=== PATIENT | female | born 1960 | race Caucasian/White ===

== ENCOUNTER 2025-03-04 11:38 | Outpatient (CLI) | payer BC, SELFPAY ==
--- OUTSIDE RECORDS SUMMARY | 2025-02-04 11:00 | XMS_ITS | Encounter Summary ---
Author Organization Healthcare Address [address] [place] [address] Care Team Providers Care Teller Supervisor Name Role Phone Chantelle Ruiz MD Primary Care Provider [phone] Encounter Details Date Type Department Care Team (Late st Contact Info) Description 02/04/2025 11:00 AM EDT [facility] Visit [facility] [address] [place] [address] Carito Mayo MD [address] [place] [address] Chronic midline low back pain without sciatica (Primary Dx); Facet arthritis of lumbar region; Right hip pain Social History Tobacco Use Types Packs/Day Years Used Date Smoking Tobacco: Never Smokeless Tobacco: Never Alcohol Use Standard Drinks/Week Comments Never 0 (1 standard drink = 0.6 oz pur e alcohol) PHQ-2 Answer Date Recorded Patient Health Questionnaire-2 Score 0 12/06/2024 PHQ-9 Answer Date Recorded Patient Health Questionnaire-9 Score 6 12/06/2024 Comments Unknown Sex and Gender Information Value Date Recorded Sex Assigned at Not on file Legal Sex Female 8:43 PM EDT Gender Identity Not on file Sexual Orientation Not on file documented as of this encounter Last Filed Vital Signs Vital Sign Reading Time Taken Comments Blood Pressure 126/84 02/04/2025 10:39 AM EDT Pulse - - Temperature - - Respiratory Rate - - Oxygen Saturation - - Inhaled Oxygen Concentration - - Weight 131 kg (289 lb 3.9 oz) 02/04/2025 10:39 A M EDT Height 160 cm (5' 3 ) 02/04/2025 10:39 AM EDT Body Mass Index 51.24 02/04/2025 10:39 AM EDT documented in this encounter Miscellaneous Notes * Progress Notes - Cherrie Salinas, FLACA - 02/04/2025 11:00 AM EDT We had the pleasure of seeing your patient in our clinic today for continued Neurosurgical evaluation. Chief Complaint Follow-up History Of Present Illness Olivia Dupree is a 64 y.o. female presents to the neurosurgical clinic today for follow-up. The patient was previously seen by our colleague, Dr. Field for ongoing low back pain. As you may recall, the patient had a L5-S1 lumbar microdiskectomy for cauda equina syndrome in 1988 In [place], [place]. The patient had had residual saddle anesthesia however her pain had resolved. Over the last 2-3 years, patient had had low back pain that had worsened over the last year. She had an epidural steroid injections, physician primary care sports medicine as well as physical therapy for her hips without appreciable benefit. After repeat imaging, this was reviewed and determine to follow up with Dr. Mayo to discuss any surgical options if appropriate. At today's visit, the patient continues to complain of low back pain and continues to be pending a right total hip replacement. She states that recentlyshe has noticed pain that is in the right hip, right side of her knee, as well as in the right lateral calf. She also notes swelling in his areas well, she has had an ultrasound which has ruled out aDVT in the area. She does notice numbness and tingling occasionally as well. She is lying on a walker for mobility over the last month. The patient continues to receive hip injections but is noted inlast visit, has not had anymore epidural steroid injections despite improvement after them. She states the gabapentin 300 mg that she was previously taking has not improved her symptoms. She denies any bowel or bladder incontinence but continues to have the residual saddle anesthesia. Past Medical History She has a past medical history of Anemia, Arthritis, Hypertension, Low back pain, Obesity, and Sleep apnea. Surgical History She has a past surgical history that includes Cholecystectomy; Hysterectomy; Tonsillectomy (1968); and Adenoidectomy (1968). Family History Family History[1] Social History She reports that she has never smoked. She has never used smokeless tobacco. She reports that she does not drink alcohol and does not use drugs. Medications Current Medications[2] Allergies Methylprednisolone Review of Systems 14 point review of systems was performed and was negative except as noted per HPI. Physical Exam Neurologic exam: Alert and oriented x3. Appropriate memory, attention span, and insight. Normal coordination noted. Strength 5/5 bilaterally in upper and lower extremities. No tremor noted. Biceps, triceps, brachioradialis, patellar, achilles reflexes symmetric and 1+ bilaterally. Sensation, including light touch, intact bilaterally. Negative Mai's bilaterally. No clonus noted bilaterally. Negative straight leg raise test bilaterally. Positive Rony's test on the right, negative Rony's test on the left. Last Recorded Vitals Visit Vitals BP 126/84 Ht 1.6 m (5' 3 ) Wt 131 kg (289 lb 3.9 oz) BMI 51.24 kg/m?? Smoking Status Never BSA 2.41 m?? Labs No lab exists for component: ALB Results from last 7 days Lab Units 01/30/25 0815 WBC 10*3/mm3 8.01 HEMOGLOBIN g/dL 10.1* HEMATOCRIT % 31* PLATELETS 10*3/mm3 279 Imaging I personally reviewed and independently interpreted MRI of the lumbar spine from December 18, [address] Mayo. Imaging does show fhrj-we-ebyqqbkx spinal stenosis at L3-4, there are postoperative changes noted at L5-S1. No appreciable narrowing is noted at other levels. Assessment and Plan Olivia Dupree is a 64 y.o. female presents to the neurosurgical clinic today for follow-up. Imaging was reviewed in his noted above. At this time, while the patient does have djgs-ek-onyjgkxk central stenosis at L3-4, her symptoms are more consistent with a right hip pathology. We would recommend no neurosurgical intervention at this time as she does not have any other symptoms of cauda equina and her symptoms are more consistent with her right hip. She will continue with her right hip replacement and contact us if she has any new or worsening symptoms after today's visit. The patient was given the opportunity to ask questions all of which were answered to their satisfaction and is agreeable to the plan of care. I personally examined and reviewed patient's history along with Dr. Mayo, the plan of care was discussed and guided by Dr. Mayo. This note was dictated using voice to text software and may contain minor errors Sierra [facility]inas APRN Division of Neurosurgery [facility] [1] Family History Problem Relation Name Age of Onset Migraines Mother Ginny Dupree 26 [2] Current Outpatient Medications Medication Sig Dispense Refill ascorbic acid (Vitamin C) 500 MG tablet Take 1 tablet by mouth 1 time each day. ferrous sulfate 325 (65 Fe) MG tablet Take 1 tablet by mouth. Gabapentin powder Lexapro 20 MG tablet Take 1 tablet by mouth 1 (one) time each day. lisinopril-hydroCHLOROthiazide 20-25 MG tablet Take 1 tablet by mouth 1 (one) time each day. montelukast (Singulair) 10 MG tablet Take 1 tablet by mouth 1 (one) time each day. nystatin (Mycostatin) 180048 UNIT/GM powder APPLY POWDER TOPICALLY TO AFFECTED AREA TWICE DAILY triamcinolone (Kenalog) 0.1 % cream APPLY A THIN LAYER OF CREAM EXTERNALLY TO AFFECTED AREA TWICE DAILY NEEDED No current facility-administered medications for this visit. Cosigned by Carito Mayo MD at 02/10/2025 10:33 AM EDT Associated attestation - Carito Mayo MD - 02/10/2025 10:33 AM EDT I evaluated this patient along with the ROXANNE and agree with her note and plan of management. Please charge to the ROXANNE. documented in this encounter Plan of Treatment Not on file documented as of this encounter Visit Diagnoses Diagnosis Chronic midline low back pain without sciatica- Primary Facet arthritis of lumbar region Right hip pain Pain in joint, pelvic region and thigh documented in this encounter Additional Health Concerns Assessment Noted Time PHQ-9 Depression Total Score: 6 12/07/19 25 8:41 AM EDT A fall risk assessment has been complete d for the patient 02/04/2025 10:51 AM EDT A Body Mass Index follow-up plan has been documented for the patient 02/10/2025 10:33 AM EDT documented as of this encounter Care Teams Teller Supervisor Relationship Specialty Start Date End Date Chantelle Ruiz MD [address] [facility] [address] [place] [address] PCP - General 01/22/21 documented as of this encounter
--- OUTSIDE RECORDS SUMMARY | 2025-03-04 11:42 | XMS_ITS | Encounter Summary ---
Author Organization Healthcare Address [address] [place] [address] Care Team Providers Care Transportation Design Engineer Name Role Phone Chantelle Ruiz MD Primary Care Provider [phone] Encounter Details Date Type Department Care Team (Latest Contact Info) Description 02/04/2025 Travel Social History Tobacco Use Types Packs/Day Years [...] on file documented as of this encounter Plan of Treatment Not on file documented as of this encounter Visit Diagnoses Not on filedocumented in this encounter Additional Health Concerns Assessment Noted Time PHQ-9 Depression Total Score: 6 12/07/19 25 8:41 AM EDT A fall risk assessment has been complete d for the patient 02/04/2025 10:51 AM EDT A Body Mass Index follow-up plan has been documented for the patient 02/10/2025 10:33 AM EDT documented as of this encounter Care Teams Transportation Design Engineer Relationship Specialty Start Date End Date Chantelle Ruiz MD [address] [facility] [address] [place], [place] [id number] PCP - General 01/22/21 documented as of this encounter
--- OUTSIDE RECORDS SUMMARY | 2025-03-04 11:42 | XMS_ITS | Encounter Summary ---
Author Organization Healthcare Address [address] [place] [address] Care Team Providers Care Laborer Chicken Farm Name Role Phone Chantelle Ruiz MD Primary Care Provider [phone] Encounter Details Date Type Department Care Team (Late st Contact Info) Description 12/27/2024 Telephone [place] [facility] [address] [place] [address] Fahad Field MD [address] [place] [address] Social History Tobacco Use Types Packs/Day Years [...] on file documented as of this encounter Miscellaneous Notes * Telephone Encounter - Geni Villegas PA - 12/27/2024 4:40 PM EDT MRI lumbar spine dated 12/18/2024 was reviewed today by myself and Dr. Field. Imaging demonstrates multilevel degenerative disc disease throughout with postoperative changes at L5-S1. There is advanced degenerative disc disease with facet arthropathy and broad-based disc bulging with a central discherniation at L3-4 resulting in spinal canal stenosis. There may be a component of epidural lipomatosis. The patient's symptoms have been refractory to chiropractic therapy and injection therapy. Thepatient is scheduled for a CT scan of the heart on 01/15/2025. The patient requires cardiac clearance. The patient is interested in surgical options. Once cardiac clearance has been obtained, the patient was instructed to notify us. Dr. Field would like the patient to follow up with Dr. Mayo to discuss surgical options if appropriate. The patient verbalized understanding. * Telephone Encounter - Fernando Bishop - 12/27/2024 1:29 PM EDT Patient Phone Message Reason for Call: Patient calling has completed MRI needing call back for next steps in care Best contact number and optimal time of day to reach caller: [phone] Note: Please do not reply to this message. Follow-up communication and further actions as a result of this message need to be communicated with the patient directly, if the patient is not active onMyChart. If the patient is active on MyChart, they will receive notification of the communication/outcome via [employer]. documented in this encounter Plan of Treatment Not on file documented as of this encounter Visit Diagnoses Not on filedocumented in this encounter Additional Health Concerns Assessment Noted Time PHQ-9 Depression Total Score: 6 12/07/19 25 8:41 AM EDT A fall risk assessment has been complete d for the patient 12/06/2024 8:39 AM EDT A Body Mass Index follow-up plan has been documented for the patient 12/06/2024 9:27 AM EDT documented as of this encounter Care Teams Laborer Chicken Farm Relationship Specialty Start Date End Date Chantelle Ruiz MD [address] [facility] [address] [place] [address] PCP - General 01/22/21 documented as of this encounter
--- OUTSIDE RECORDS SUMMARY | 2025-03-04 11:42 | XMS_ITS | Encounter Summary ---
Author Organization Healthcare Address [address] [place] [address] Care Team Providers Care Farm Machinery Engine Mechanic Name Role Phone Chantelle Ruiz MD Primary Care Provider [phone] Encounter Details Date Type Department Care Team ([facility] st Contact Info) Description 10/05/2023 Orders Only External Location [address] [place] [address] Provider, External Social History Tobacco Use Types Packs/Day Years Used Date Smoking Tobacco: Never Assessed Comments Unknown Sex and Gender Information Value Date Recorded Sex Assigned at Not on file Legal Sex Female 8:43 PM EDT Gender Identity Not on file Sexual Orientation Not on file documented as of this encounter Plan of Treatment Not on file documented as of this encounter Procedures Procedure Name Priority Date/Time Associated Diagnosis Comments MR OUTSIDE IMAGES 10/05/2023 9:14 AM EST documented in this encounter Results * MR transfer of outside films (10/05/2023 9:14 AM EST) Anatomical Region Laterality Modality Magnetic Resonan ce 10/05/2023 9:14 AM EST us External Provider IMG MRI PROCEDURES Final Resul t documented in this encounter Visit Diagnoses Not on filedocumented in this encounter Care Teams Farm Machinery Engine Mechanic Relationship Specialty Start Date End Date Chantelle Ruiz MD [address] [facility] [address] [place] [address] PCP - General 01/22/21 documented as of this encounter
--- OUTSIDE RECORDS SUMMARY | 2025-03-04 11:42 | XMS_ITS | Encounter Summary ---
Author Organization Healthcare Address [address] [place] [address] Care Team Providers Care Caustics Loader Name Role Phone Chantelle Ruiz MD Primary Care Provider [phone] Encounter Details Date Type Department Care Team (Latest Contact Info) Description 01/29/2025 Travel Social History Tobacco Use Types Packs/Day [...] documented as of this encounter Care Teams Caustics Loader Relationship Specialty Start Date End Date Chantelle Ruiz MD [address] [place], [place] [id number] PCP - General 01/22/21 documented as of this encounter
--- OUTSIDE RECORDS SUMMARY | 2025-03-04 11:42 | XMS_ITS | Encounter Summary ---
Author Organization Healthcare Address [address] [place] [address] Care Team Providers Care Delivery Manager Name Role Phone Chantelle Ruiz MD Primary Care Provider [phone] Reason for Visit * Reason Onset Date Comments HCN - Patient Message 01/28/2025 Return joshua l Encounter Details Date Type Department Care Team (Late st Contact Info) Description 01/28/2025 Telephone [place] [facility] [address], [address] [place] [address] Fahad Field MD [address] [place] [address] HCN - Patient Message (Return call) Social History Tobacco Use Types Packs/Day Years [...] encounter Miscellaneous Notes * Telephone Encounter - Mayte Chamberlain - 01/28/2025 1:23 PM EDT Confirmed cards clearance is uploaded in her media tab. Spoke with patient and scheduled f/up with Dr. Mayo to discuss surgical intervention on 02/04 at 2:00PM. * Telephone Encounter - Cleveland Shankar - 01/28/2025 1:13 PM EDT Patient Phone Message Reason for Call: Patient states she now has her cardiac clearance and would like a return call to set up her surgery. Best contact number and optimal time of day to reach caller: Please call [phone] Note: Please do not reply to this message. Follow-up communication and further actions as a result of this message need to be communicated with the patient directly, if the patient is not active onMyChart. If the patient is active on MyChart, they will receive notification of the communication/outcome via [employer]. documented in this encounter Plan of Treatment [...] documented as of this encounter Care Teams Delivery Manager Relationship Specialty Start Date End Date Chantelle Ruiz MD [address] [facility] [address] [place] [address] PCP - General 01/22/21 documented as of this encounter
--- OUTSIDE RECORDS SUMMARY | 2025-03-04 11:42 | XMS_ITS | Encounter Summary ---
Author Organization Healthcare Address [address] [place] [address] Care Team Providers Care Slunk Skinner Name Role Phone Chantelle Ruiz MD Primary Care Provider [phone] Encounter Details Date Type Department Care Team (Late st Contact Info) Description 08/22/2022 Orders Only External Location [address] [place] [address] Provider, External Social History Tobacco Use Types [...] Date/Time Associated Diagnosis Comments MR OUTSIDE IMAGES 08/22/2022 2:06 PM EST documented in this encounter Results * MR transfer of outside films (08/22/2022 2:06 PM EST) Anatomical Region Laterality Modality Magnetic Resonan ce 08/22/2022 2:06 PM EST us External Provider IMG MRI PROCEDURES Final Resul t documented in this encounter Visit Diagnoses Not on filedocumented in this encounter Care Teams Slunk Skinner Relationship Specialty Start Date End Date Chantelle Ruiz MD [address] [facility] [address] [place] [address] PCP - General 01/22/21 documented as of this encounter
--- OUTSIDE RECORDS SUMMARY | 2025-03-04 11:42 | XMS_ITS | Encounter Summary ---
Author Organization Healthcare Address [address] [place] [address] Care Team Providers Care Gear Machine Operator General Name Role Phone Chantelle Ruiz MD Primary Care Provider [phone] Reason for Visit * Reason Onset Date Comments HCN - Patient Message 12/23/2024 Results Encounter Details Date Type Department Care Team (Late st Contact Info) Description 12/23/2024 Telephone [place] [facility] [address] [place] [address] Fahad Field MD [address] [place] [address] HCN - Patient Message (Results ) Social History Tobacco Use Types Packs/Day Years [...] encounter Miscellaneous Notes * Telephone Encounter - Lexie Borges - 12/23/2024 10:11 AM EDT Patient Phone Message Reason for Call: MRI results Done at [facility] 12/18/24 Best contact number and optimal time of day to reach caller: Pt / [phone] Note: Please do not reply to this message. Follow-up communication and further actions as a result of this message need to be communicated with the patient directly, if the patient is not active onMyChart. If the patient is active on MyChart, they will receive notification of the communication/outcome via [employer]. documented in this encounter Plan of Treatment Not on file documented as of this encounter Visit Diagnoses Not on filedocumented in this encounter Additional Health Concerns Assessment Noted Time PHQ-9 Depression Total Score: 6 12/07/19 8:41 AM EDT A fall risk assessment has been complete d for the patient 12/06/2024 8:39 AM EDT A Body Mass Index follow-up plan has been documented for the patient 12/06/2024 9:27 AM EDT documented as of this encounter Care Teams Gear Machine Operator General Relationship Specialty Start Date End Date Chantelle Ruiz MD [address] [facility] [address] [place] [address] PCP - General 01/22/21 documented as of this encounter
--- OUTSIDE RECORDS SUMMARY | 2025-03-04 11:42 | XMS_ITS | Clinical Summary ---
Author Organization Healthcare Address [address] [place] [address] Care Team Providers Care Presidential Support Specialist Name Role Phone Chantelle Ruiz MD Primary Care Provider [phone] Allergies Active Allergy Reactions Criticality Noted Date Comments Methylprednisolone Other - please document in the comment field Medium 01/12/2016 Flushing, weirdness , jittery Medications Lexapro 20 MG tablet Take 1 tablet by mouth 1 (one) time each day. 05/17/20 24 Active lisinopril-hyd roCHLOROthiazi de 20-25 MG tablet Take 1 tablet by mouth 1 (one) time each day. 05/17/20 24 Active montelukast (Singulair) 10 MG tablet Take 1 tablet by mouth 1 (one) time each day. 05/17/20 24 Active triamcinolone (Kenalog) 0.1 % cream APPLY A THIN LAYER OF CREAM EXTERNALLY TO AFFECTED AREA TWICE DAILY NEEDED 02/08/20 24 Active Gabapentin powder 01/24/20 25 Active ascorbic acid (Vitamin C) 500 MG tablet Take 1 tablet by mouth 1 time each day. 12/12/19 25 Active ferrous sulfate 325 (65 Fe) MG tablet Take 1 tablet by mouth. 12/12/19 25 Active nystatin (Mycostatin) 535989 UNIT/GM powder APPLY POWDER TOPICALLY TO AFFECTED AREA TWICE DAILY Active gabapentin (Neurontin) 300 MG capsule Take 1 capsule by mouth in the morning and 1 capsule at noon and 1 capsule in the evening. 01/14/ 025 Discontinued Active Problems No known active problems Encounters Date Type Department Care Team Description 02/04/2025 11:00 AM EDT Office Visit [facility] [id number], [address] [place] [phone] Carito Mayo MD Chronic midline low back pain without sciatica (Primary Dx); Facet arthritis of lumbar region; Right hip pain 02/04/2025 Travel 01/29/2025 Travel 01/28/2025 Telephone [facility] [id number], [address] [place] [phone] Fahad Field MD [facility] - Patient Message (Return call) 12/27/2024 Telephone [facility] [id number], [address] [place] [phone] Fahad Field MD 12/23/[address] [phone] Fahad Field MD [facility] - Patient Message (Results ) 12/18/2024 Orders Only External Location [address] [place] [address] Provider, External 12/06/2024 9:00 AM EDT Consult [facility] [id number] [phone] Fahad Field MD Degeneration of intervertebral disc of lumbar region with discogenic back pain and lower extremity pain (Primary Dx); Low back pain; Facet arthritis of lumbar region; Spinal stenosis of lumbar region with neurogenic claudication; Synovial cyst of lumbar facet joint; History of lumbosacral spine surgery 12/06/2024 Travel 12/05/2024 Travel from Last 3 Months Family History Medical History Relation Name Comments Migraines Mother Ginny Dupree Relation Name Status Comments Mother Ginny Dupree Social History Tobacco Use Types Packs/Day Years Used Date Smoking Tobacco: Never Smokeless Tobacco: Never Tobacco Cessation:Counseling Given: Not Answered Alcohol Use Standard Drinks/Week Comments Never 0 [...] on file Sexual Orientation Not on file Last Filed Vital Signs Vital Sign Reading [...] Mass Index 51.24 02/04/2025 10:39 AM EDT Plan of Treatment Health Maintenance Due Date Last Done Comments [facility]-HIV Screening 1961 [facility]-Infant/Child/Adol SDOH Screenings 1961 [facility]- SDOH Screenings 1979 [facility]-Adult SDOH Screenings 1979 CT Colonography 2006 Colonoscopy 2006 FIT-DNA 2006 FIT 2006 FOBT 2006 Sigmoidoscopy 2006 [facility]-Colorectal Cancer Screening 2006 [facility]-Breast Cancer Screening 2011 [facility]-RSV Vaccine: 60+ Years or (1 - Risk 60-74 years 1-dose series) 2021 [id number] Vaccine (3 - Mixed Product risk series) 12/09/2022 11/11/2022, 05/03/2021 [facility]-Influenza Vaccine (Season Ended) 2025 06/29/2021, 05/31/2019, 09/28/2018, Additional history exists [facility]-Diabetes: Hemoglobin A1C 11/12/202512/2024, 05/08/2024, 05/08/2023, Additional history exists [facility]-Depression Screening 12/06/2025 12/06/2024, 11/10 [facility]-DTaP,Tdap,and Td Vaccines (3 - Td or Tdap) 09/08/2032 09/08/2022, 07/31/2012 [facility]-Hepatitis C Screening Completed 01/09/2018 [facility]-Hepatitis A Vaccines Aged Out 03/26/2019, 09/11 No longer eligible based on patient's age to complete this topic [facility]-Zoster Vaccines Completed 04/19/2019, [facility]-Pneumococcal Vaccine: 50+ Years Completed 04/19/2022, 01/14/2016, 05/20/2010 [facility]-Obesity Intervention Completed 02/04/2025, 11/10 HPV Vaccines Aged Out No longer eligi ble based on patient's age to complete this topic [facility]-HIB Vaccines Aged Out No longer e ligible based on patient's age to complete this topic [facility]-IPV Vaccines Aged Out No longer e ligible based on patient's age to complete this topic [facility]-Rotavirus Vaccines Aged Out No lo nger eligible based on patient's age to complete this topic Procedures Procedure Name Priority Date/Time Associated Diagnosis Comments MR NEURO OUTSIDE IMAGES 12/18/2024 11:11 AM EDT from Last 3 Months Results * MR NEURO OUTSIDE IMAGES (12/18/2024 11:11 AM EDT) Anatomical Region Laterality Modality Magnetic Resonan ce 12/18/2024 11:1 1 AM EDT us External Provider IMG MRI PROCEDURES Final Resul t from Last 3 Months Insurance ANTHEM Care Teams Presidential Support Specialist Relationship Specialty Start Date End Date Chantelle Ruiz MD [id number] [facility] [address] [place] [address] PCP - General 01/22/21
[2025-03-04 12:24] LABS: Basophils % 0.3 % (0.1-2.0); Eosinophils # 0.1 Kmm3 (0.0-0.4); Eosinophils % 1.1 % (0.1-12.0); Hematocrit 30.2 % (37.0-47.0); Hemoglobin 9.7 g/dL (12.2-16.2); Immature Granulocytes # 0.04 10^3uL; Immature Granulocytes % 0.4 %; Lymphocytes # 1.2 K/mm3 (0.7-4.5); Lymphocytes % 13.4 % (10-50); Mean Corpuscular HGB Conc 32.1 g/dL (31.8-35.4); Mean Corpuscular Hemoglobin 27.2 pg (27.0-31.2); Mean Corpuscular Volume 84.8 fl (81-99); Mean Platelet Volume 11.4 fl (7.4-10.4); Monocytes # 0.8 K/mm3 (0.1-1.0); Neutrophils # 6.7 K/mm3 (1.8-7.8); Neutrophils % 75.8 % (37.0-80.0); Nucleated Red Blood Cells # 0 10^3/uL; Nucleated Red Blood Cells % 0 %; Platelet Count 262 K/mm3 (142-424); Red Blood Count 3.56 M/mm3 (4.20-5.40); Red Cell Distribution Width 14.7 % (11.5-17.5); Red Cell Distribution Width-SD 46.1 fL; Reticulocyte % (Auto) 1.1 % (0.9-3.2); White Blood Count 8.9 K/mm3 (4.8-10.8)
[2025-03-04 12:52] LABS: Lactate Dehydrogenase 195 U/L (313-618)
[2025-03-04 13:42] LABS: Vitamin B12 467 pg/mL (239-931)
[2025-03-04 15:18] LABS: Iron 47 ug/dL (37-170)
[2025-03-04 15:28] LABS: Total Iron Binding Capacity 293 ug/dL (265-497)
[2025-03-04 15:55] LABS: Ferritin 24.2 ng/ml (11.1-264)
[2025-03-05 08:28] LABS: Haptoglobin 228 mg/dL (37-355)
[2025-03-06 11:48] LABS: Peripheral Smear Review Scanned Result
== END 2025-03-04 23:59 | disposition home or self-care (01) ==
PROVIDERS: PCP Internal Medicine; Visit Provider Internal Medicine Medical Oncology
DX: D64.9 Anemia, unspecified (principal)
CPT/HCPCS: 36415; 82607; 82728; 82746; 83010; 83540; 83550; 83615; 85025; 85044; 86880